=== PATIENT | female | born 1970 | race Hispanic/Latino ===

== ENCOUNTER → 2017-05-28 | Outpatient (CLI) | payer OTHER | END | disposition home or self-care (01) | LOC: RAH 11:37 | PROVIDERS: ATTEND Nurse Practitioner Family | DX: N63.20 Unspecified lump in the left breast, unspecified quadrant (principal); N63.10 Unspecified lump in the right breast, unspecified quadrant; R92.8 Other abnormal and inconclusive findings on diagnostic imaging of breast; D24.1 Benign neoplasm of right breast | CPT/HCPCS: 76641; 77066 ==

== ENCOUNTER → 2018-08-01 | Outpatient (CLI) | payer OTHER | END | disposition home or self-care (01) | LOC: RAH 10:00 | PROVIDERS: ATTEND Nurse Practitioner Family | DX: Z12.31 Encounter for screening mammogram for malignant neoplasm of breast (principal) | CPT/HCPCS: 77067 ==

== ENCOUNTER 2018-08-11 17:27 | Emergency (ER) | payer OTHER ==
[2018-08-11 18:22] LABS: APPEARANCE,URINE Clear (CLEAR); BILIRUBIN,URINE Negative (NEGATIVE); COLOR,URINE Yellow (YELLOW); GLUCOSE, URINE (UA) Negative (NEGATIVE); KETONES,URINE Negative (NEGATIVE); LEUKOCYTE ESTERASE ,URINE Negative (NEGATIVE); NITRATE,URINE Negative (NEGATIVE); OCCULT BLOOD,URINE Negative (NEGATIVE); PROTEIN,URINE Negative (NEGATIVE); UROBILINOGEN,URINE 0.2 mg/dL (0.2-1.0)
[2018-08-11 18:25] LABS: BASOPHILS % (AUTO) 0.4 % (0.0-5.0); EOSINOPHILS % (AUTO) 1.7 % (0.0-8.0); HEMATOCRIT 23.8 % (36-48); MEAN CORPUSCULAR HGB CONC 30.9 g/dL (32.0-36.0); MEAN CORPUSCULAR VOLUME 68.1 fL (79-99); MONOCYTES % (AUTO) 7.2 % (3.0-13.0); NEUTROPHILS % (AUTO) 68.7 % (40.0-77.0); PLATELET COUNT (AUTO) 465 K/uL (130-400); WHITE BLOOD COUNT (AUTO) 7.4 K/uL (4.8-10.8)
[2018-08-11 18:32] LABS: HCG,QUAL RESULT NEGATIVE (NEGATIVE)
[2018-08-11 18:43] LABS: CREATININE 0.9 mg/dL (0.5-1.5); POTASSIUM 3.7 mmol/L (3.5-5.1)
[2018-08-11 18:47] LABS: ALBUMIN 3.4 g/dL (3.5-5.0); BILIRUBIN,DIRECT 0.1 mg/dL (0.0-0.3); BILIRUBIN,TOTAL 0.2 mg/dL (0.2-1.0); TOTAL PROTEIN, SERUM 6.5 g/dL (6.0-8.3)
[2018-08-11] MEDS ORDERED: ORPHENADRINE CITRATE 30 MG/ML ML ONE (19:52)
[2018-08-11] MEDS ORDERED: KETOROLAC TROMETHAMINE 60 MG/2 ML VIAL ONE (19:52)
== END 2018-08-11 20:29 | disposition home or self-care (01) ==
LOC: EDH 17:27
DX: M62.838 Other muscle spasm (principal); D50.9 Iron deficiency anemia, unspecified; R06.02 Shortness of breath; K21.9 Gastro-esophageal reflux disease without esophagitis; Z88.6 Allergy status to analgesic agent; Z79.899 Other long term (current) drug therapy
CPT/HCPCS: 36415; 71046; 80048; 80076; 81003; 81025; 82270; 83690; 85025; 85378; 96372 ×2; 99285; J1885; J2360

== ENCOUNTER 2019-02-18 05:55 | Day surgery (SDC) | payer OTHER ==
[2019-02-16 11:56] VITALS: BP 116/66
[2019-02-16 12:06] LABS: BASOPHILS % (AUTO) 0.5 % (0.0-5.0); EOSINOPHILS % (AUTO) 3.6 % (0.0-8.0); HEMATOCRIT 36.1 % (36-48); LYMPHOCYTES % (AUTO) 29.5 % (21.0-51.0); MEAN CORPUSCULAR HEMOGLOBIN 28.2 pg (27.0-33.0); MEAN CORPUSCULAR HGB CONC 30.7 g/dL (32.0-36.0); MEAN CORPUSCULAR VOLUME 91.9 fL (79-99); MONOCYTES % (AUTO) 6.4 % (3.0-13.0); NEUTROPHILS % (AUTO) 59.6 % (40.0-77.0); PLATELET COUNT (AUTO) 372 K/uL (130-400); RED BLOOD CELL COUNT(AUTO) 3.93 MIL/uL (4.00-5.50); RED CELL DISTRIBUTION WIDTH 14.9 % (11.0-15.5); WHITE BLOOD COUNT (AUTO) 5.5 K/uL (4.8-10.8)
[2019-02-18] VITALS (14 sets, daily range): BP systolic 98–138; BP diastolic 50–79
[~2019-02-18] VITALS: Ht 162.6 cm; Wt 87.3 kg
[~2019-02-18 05:55] MED LIST: IRON1CAP31 PO; PROG100C11 PO; SUCR1TAB2 PO; TRAZADONE PO; ZOLP10TA6 PO
[2019-02-18] MEDS ORDERED: LACTATED RINGERS 1000ML 1,000 ML IV ONE (06:12)
[2019-02-18] MEDS: CEFAZOLIN SODIUM 1 GM VIAL IVP SCH ×2 (06:30→07:04)
[2019-02-18] MEDS: CALDOLOR 800MG+NS 250ML 250 ML IV SCH ×2 (06:30→07:29)
[2019-02-18] MEDS ORDERED: PROPOFOL 10 MG/ML 20ML VIAL IV ONE ×2 (07:04→07:15)
[2019-02-18] MEDS ORDERED: ONDANSETRON HCL 4 MG/2 ML VIAL ONE (07:04)
[2019-02-18] MEDS ORDERED: MIDAZOLAM HCL 1 MG/ML 2ML VIAL ONE (07:04)
[2019-02-18] MEDS ORDERED: LIDOCAINE PF 2% 5ML ABBOJECT ONE (07:04)
[2019-02-18] MEDS ORDERED: FENTANYL CITRATE PF 50 MCG/1 ML 2ML VIAL ONE ×2 (07:04→08:20)
[2019-02-18] MEDS ORDERED: DEXAMETHASONE SOD PHOSPHATE 10MG/ML 1ML VIAL ONE (07:04)
[2019-02-18] MEDS ORDERED: MEPERIDINE-PF 25 MG/ML SYG ONE (08:10)
--- NOTE | 2019-02-18 08:45 | NUR ---
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 PT AWAKE AND ALERT, DENIES ANY PAIN OR DISCOMFORTS. VS STABLE. PLAN OF CARE DISCUSS WITH PT/SPOUSE .CALL LIGHT WITHIN REACH
--- NOTE | 2019-02-18 09:12 | NUR ---
DC DC INSTRUCTIONS GIVEN TO PT'S SPOUSE , PT STATED DR. BOYD GAVE HER PRESCRIPTION FOR PAIN MEDS IN OFFICE PRIOR TO SURGERY. INSTRUCTED THEM TO F/U WITH DR. BOYD AND CONTINUE HOME MEDS. BOTH VERBALIZED UNDERSTANDING.
--- NOTE | 2019-02-18 09:15 | NUR ---
DC PT DC HOME VIA WC, NO DISTRESS NOTED. PT DENIED ANY PAIN OR DISCOMFORTS. PT ACCOMPANIED BY SPOUSE
== END 2019-02-18 09:15 | disposition home or self-care (01) ==
LOC: DAH 05:55
PROVIDERS: ATTEND Obstetrics & Gynecology
DX: N92.0 Excessive and frequent menstruation with regular cycle (principal); N93.9 Abnormal uterine and vaginal bleeding, unspecified; N81.4 Uterovaginal prolapse, unspecified; F41.9 Anxiety disorder, unspecified; F32.9 Major depressive disorder, single episode, unspecified; Z98.890 Other specified postprocedural states
CPT/HCPCS: 36415; 58558; 84703; 85025; 86850; 86900; 86901; 88305; A4215; A4221; A4222; A4223; A4351; A4355; A4663; A6260; J0690; J1100; J2001; J2175; J2250; J2405; J2704 ×2; J3010 ×2; J7030 ×2; J7120

== ENCOUNTER → 2019-08-19 | Outpatient (CLI) | payer OTHER | END | disposition home or self-care (01) | LOC: RAH 14:45 | PROVIDERS: ATTEND Legal Medicine | DX: Z12.31 Encounter for screening mammogram for malignant neoplasm of breast (principal); N64.89 Other specified disorders of breast | CPT/HCPCS: 77067 ==

== ENCOUNTER 2020-07-16 10:45 | Emergency (ER) | payer OTHER ==
[2020-07-16 11:23] LABS: BASOPHILS % (AUTO) 0.6 % (0.0-5.0); EOSINOPHILS % (AUTO) 2.4 % (0.0-8.0); HEMATOCRIT 28.6 % (36-48); LYMPHOCYTES % (AUTO) 26.1 % (21.0-51.0); MEAN CORPUSCULAR HGB CONC 29.4 g/dL (32.0-36.0); MEAN CORPUSCULAR VOLUME 95.3 fL (79-99); MONOCYTES % (AUTO) 4.8 % (3.0-13.0); NEUTROPHILS % (AUTO) 65.6 % (40.0-77.0); PLATELET COUNT (AUTO) 468 K/uL (130-400); RED CELL DISTRIBUTION WIDTH 19.2 % (11.0-15.5); WHITE BLOOD COUNT (AUTO) 6.6 K/uL (4.8-10.8)
[2020-07-16 11:27] LABS: APPEARANCE,URINE Clear (CLEAR); BILIRUBIN,URINE Negative (NEGATIVE); COLOR,URINE Yellow (YELLOW); GLUCOSE, URINE (UA) Negative (NEGATIVE); KETONES,URINE Negative (NEGATIVE); LEUKOCYTE ESTERASE ,URINE Negative (NEGATIVE); NITRATE,URINE Negative (NEGATIVE); OCCULT BLOOD,URINE Negative (NEGATIVE); PROTEIN,URINE Negative (NEGATIVE); UROBILINOGEN,URINE 0.2 mg/dL (0.2-1.0)
[2020-07-16 11:32] LABS: PROTHROMBIN TIME 10.9 SEC (9.6-11.6)
[2020-07-16 11:34] LABS: PARTIAL THROMBOPLASTIN TIME 23.5 SEC (26.3-35.5)
[2020-07-16 11:37] LABS: CREATININE 0.9 mg/dL (0.5-1.5); POTASSIUM 3.9 mmol/L (3.5-5.1)
[2020-07-16 11:39] LABS: ALBUMIN 3.1 g/dL (3.5-5.0); BILIRUBIN,TOTAL 0.1 mg/dL (0.2-1.0); TOTAL PROTEIN, SERUM 6.6 g/dL (6.0-8.3)
== END 2020-07-16 12:19 | disposition home or self-care (01) ==
LOC: EDH 10:45
DX: D50.9 Iron deficiency anemia, unspecified (principal); K21.9 Gastro-esophageal reflux disease without esophagitis; Z90.49 Acquired absence of other specified parts of digestive tract; Z98.890 Other specified postprocedural states; Z88.5 Allergy status to narcotic agent
CPT/HCPCS: 36415; 80053; 81003; 85025; 85610; 85730; 86850; 86900; 86901

== ENCOUNTER 2020-08-04 22:39 | Emergency (ER) | payer OTHER ==
[~2020-08-04] VITALS: Ht 160 cm; Wt 86.2 kg
[2020-08-04 23:36] VITALS: BP 134/62
[2020-08-05] MEDS ORDERED: ONDANSETRON HCL 4 MG/2 ML VIAL IVP SCH
[2020-08-05] MEDS ORDERED: METOCLOPRAMIDE 10 MG/2 ML VIAL IVP SCH (00:15)
[2020-08-05] MEDS ORDERED: SODIUM CHLORIDE 0.9% 1000ML 1,000 ML IV SCH (00:15)
[2020-08-05] MEDS ORDERED: KETOROLAC 30MG VIAL (30MG/ML) IV SCH (00:15)
[2020-08-05 00:21] LABS: CREATININE 1.2 mg/dL (0.5-1.5); POTASSIUM 3.7 mmol/L (3.5-5.1)
[2020-08-05] MEDS ORDERED: IOHEXOL-350 75 ML VIAL IV ONE (00:27)
[2020-08-05 00:28] LABS: ALBUMIN 2.9 g/dL (3.5-5.0); BILIRUBIN,TOTAL 0.2 mg/dL (0.2-1.0); TOTAL PROTEIN, SERUM 6.7 g/dL (6.0-8.3)
[2020-08-05 00:52] LABS: BASOPHILS % (AUTO) 0.2 % (0.0-5.0); EOSINOPHILS % (AUTO) 1.6 % (0.0-8.0); HEMATOCRIT 28.7 % (36-48); LYMPHOCYTES % (AUTO) 10.9 % (21.0-51.0); MEAN CORPUSCULAR HEMOGLOBIN 28.6 pg (27.0-33.0); MEAN CORPUSCULAR VOLUME 95.3 fL (79-99); MONOCYTES % (AUTO) 7.1 % (3.0-13.0); NEUTROPHILS % (AUTO) 79.9 % (40.0-77.0); PLATELET COUNT (AUTO) 415 K/uL (130-400); RED BLOOD CELL COUNT(AUTO) 3.01 MIL/uL (4.00-5.50); RED CELL DISTRIBUTION WIDTH 16.9 % (11.0-15.5); WHITE BLOOD COUNT (AUTO) 12.5 K/uL (4.8-10.8)
[2020-08-05 01:41] LABS: APPEARANCE,URINE Cloudy (CLEAR); BILIRUBIN,URINE Negative (NEGATIVE); COLOR,URINE Red (YELLOW); GLUCOSE, URINE (UA) Negative (NEGATIVE); KETONES,URINE Negative (NEGATIVE); LEUKOCYTE ESTERASE ,URINE Large (NEGATIVE); NITRATE,URINE Negative (NEGATIVE); OCCULT BLOOD,URINE Large (NEGATIVE); PROTEIN,URINE POS 1+ mg/dL (NEGATIVE); UROBILINOGEN,URINE 0.2 mg/dL (0.2-1.0)
[2020-08-05 02:13] LABS: RBC,URINE TNTC /HPF (0-1)
[2020-08-05 02:14] LABS: BACTERIA,URINE Few /HPF (None Seen)
[2020-08-05] MEDS ORDERED: CYCL10TA7 PO (02:14)
[2020-08-05] MEDS ORDERED: MELO7.5T12 PO (02:14)
[2020-08-05] MEDS ORDERED: DICY20TA2 PO (02:14)
[2020-08-05 02:35] VITALS: BP 105/64
== END 2020-08-05 02:36 | disposition home or self-care (01) ==
LOC: EDH 22:39
DX: N85.8 Other specified noninflammatory disorders of uterus (principal); E86.0 Dehydration; R10.31 Right lower quadrant pain; Z98.890 Other specified postprocedural states; Z88.5 Allergy status to narcotic agent; Z79.899 Other long term (current) drug therapy
CPT/HCPCS: 36415; 74177; 80053; 81001; 83690; 85025; 87088; 96361; 96374; 96375; 99285; J1885; J2405; J2765; J7030; Q9967

== ENCOUNTER 2022-05-25 13:36 | Emergency (ER) | payer OTHER ==
[~2022-05-25] VITALS: Ht 160 cm; Wt 87.1 kg
[~2022-05-25 13:36] MED LIST changes: +CYCL-309 PO; +DICY20TA2 PO; +MELO7.5T12 PO
[2022-05-25 14:34] VITALS: BP 121/88
[2022-05-25] MEDS ORDERED: IBUPROFEN 800 MG TAB ONE (15:39)
[2022-05-25] MEDS ORDERED: IBUPROFEN 800 MG TAB PO ONE (16:00)
== END 2022-05-25 18:09 | disposition home or self-care (01) ==
LOC: EDH 13:36
DX: M25.511 Pain in right shoulder (principal); M54.2 Cervicalgia; M54.50 Low back pain, unspecified; E11.9 Type 2 diabetes mellitus without complications; Z79.899 Other long term (current) drug therapy; Z98.890 Other specified postprocedural states; V89.2XXA Person injured in unspecified motor-vehicle accident, traffic, initial encounter; Y93.I9 Activity, other involving external motion; Y92.488 Other paved roadways as the place of occurrence of the external cause; Y99.8 Other external cause status
CPT/HCPCS: 72100; 72125; 73030

== ENCOUNTER → 2022-06-06 | Outpatient (CLI) | payer OTHER | END | disposition home or self-care (01) | LOC: RAH 12:54 | PROVIDERS: ATTEND Physician Assistant Medical | DX: Z12.31 Encounter for screening mammogram for malignant neoplasm of breast (principal) | CPT/HCPCS: 77067 ==

== ENCOUNTER 2022-08-20 | Emergency (ER) | payer OTHER ==
[~2022-08-20] VITALS: Ht 160 cm; Wt 92.5 kg
[2022-08-20 00:04] VITALS: BP 128/84
== END 2022-08-20 00:33 | disposition home or self-care (01) ==
LOC: EDH
DX: J45.909 Unspecified asthma, uncomplicated (principal); R00.2 Palpitations; M19.90 Unspecified osteoarthritis, unspecified site; Z79.890 Hormone replacement therapy; Z79.899 Other long term (current) drug therapy; Z88.5 Allergy status to narcotic agent
CPT/HCPCS: 99281

== ENCOUNTER 2023-04-15 06:52 | Day surgery (SDC) | payer OTHER ==
[~2023-04-15] VITALS: Ht 160 cm; Wt 89.4 kg
[~2023-04-15 06:52] MED LIST changes: -CYCL-309 PO; -DICY20TA2 PO; -IRON1CAP31 PO; -MELO7.5T12 PO; +MULT-1367 PO; +OMEP1CAP2 PO; -PROG100C11 PO; -SUCR1TAB2 PO; -TRAZADONE PO
[2023-04-15 07:05] VITALS: BP 102/72; PULSE 91; RESP 18
[2023-04-15] MEDS: 0.9%NACL 1000ML 1,000 ML IV ONE (07:44)
[2023-04-15] MEDS ORDERED: MIDAZOLAM HCL 1 MG/ML 2ML VIAL ONE (07:50)
[2023-04-15] MEDS ORDERED: LIDOCAINE PF 100MG/5ML (2%) SYRINGE 5ML ONE (07:50)
[2023-04-15] MEDS ORDERED: PROPOFOL 10 MG/ML 20ML VIAL IV ONE (07:50)
[2023-04-15] MEDS ORDERED: ALBUTEROL INHALER 90MCG/INH IH ONE (07:53)
== END 2023-04-15 08:35 | disposition home or self-care (01) ==
LOC: ENDO 06:52 → DAH 06:52 → ENDO 08:35
PROVIDERS: ATTEND Surgery
DX: K21.9 Gastro-esophageal reflux disease without esophagitis (principal); E66.01 Morbid (severe) obesity due to excess calories; J45.909 Unspecified asthma, uncomplicated; G47.30 Sleep apnea, unspecified; F41.9 Anxiety disorder, unspecified; F32.A Depression, unspecified; G47.00 Insomnia, unspecified; Z79.899 Other long term (current) drug therapy; Z98.890 Other specified postprocedural states; Z90.49 Acquired absence of other specified parts of digestive tract; Z98.891 History of uterine scar from previous surgery; Z82.49 Family history of ischemic heart disease and other diseases of the circulatory system; Z68.36 Body mass index [BMI] 36.0-36.9, adult
CPT/HCPCS: 43235; J7030 ×2; J2001; J2250; J2704; A4620; A4215; A4223; A7002; A4221; A4663; A4606; J3490

== ENCOUNTER 2023-06-01 16:51 | Emergency (ER) | payer OTHER ==
[~2023-06-01] VITALS: Ht 160 cm; Wt 83.0 kg
[2023-06-01 17:59] LABS: BASOPHILS # (AUTO) 0.04 K/uL (0.00-0.20); BASOPHILS % (AUTO) 0.4 % (0.0-5.0); EOSINOPHILS # (AUTO) 0.38 K/uL (0.00-0.70); HEMATOCRIT 33.8 % (36-48); IMMATURE GRANULOCYTE ABSOLUTE 0.07 K/uL (0-1); LYMPHOCYTES # (AUTO) 1.1 K/uL (1.0-4.8); MEAN CORPUSCULAR HEMOGLOBIN 29.5 pg (27.0-33.0); MEAN CORPUSCULAR HGB CONC 31.7 g/dL (32.0-36.0); MEAN CORPUSCULAR VOLUME 93.1 fL (79-99); MONOCYTES # (AUTO) 0.6 K/uL (0.1-1.0); MONOCYTES % (AUTO) 6.3 % (3.0-13.0); NEUTROPHILS # (AUTO) 7.2 K/uL (1.8-7.7); NEUTROPHILS % (AUTO) 76.6 % (40.0-77.0); PLATELET COUNT (AUTO) 546 K/uL (130-400); RED BLOOD CELL COUNT(AUTO) 3.63 MIL/uL (4.00-5.50); WHITE BLOOD COUNT (AUTO) 9.4 K/uL (4.8-10.8)
[2023-06-01 18:05] LABS: POTASSIUM 3.6 mmol/L (3.5-5.1)
[2023-06-01 18:10] LABS: ALBUMIN 2.2 g/dL (3.5-5.0); TOTAL PROTEIN, SERUM 7.1 g/dL (6.0-8.3)
[2023-06-01 18:13] LABS: ADD UA MICROSCOPIC YES; APPEARANCE,URINE CLEAR (CLEAR); BILIRUBIN,URINE 0.5 mg/dL (NEGATIVE); COLOR,URINE YELLOW (YELLOW); GLUCOSE, URINE (UA) NEGATIVE (NEGATIVE); KETONES,URINE 60 mg/dL (NEGATIVE); LEUKOCYTE ESTERASE ,URINE 25 Leu/uL (NEGATIVE); NITRATE,URINE NEGATIVE (NEGATIVE); PROTEIN,URINE 50 mg/dL (NEGATIVE)
[2023-06-01] MEDS ORDERED: IOHEXOL-350 75 ML VIAL IV ONE (18:13)
[2023-06-01] MEDS: LACTATED RINGERS 1000ML 1,000 ML IV ONE (18:16)
[2023-06-01] MEDS: ONDANSETRON 4MG INJ IVP ONE (18:16)
[2023-06-01] MEDS: HYDROMORPHONE 1 MG INJ IVP ONE (18:16)
[2023-06-01 18:18] LABS: BACTERIA,URINE RARE /HPF (None Seen); MUCUS,URINE RARE LPF (None Seen); SQUAMOUS EPITHELIAL CELL,UR RARE /HPF (0-2)
[2023-06-01] MEDS: HYDROMORPHONE 0.5 MG SYG (0.5MG/0.5ML) IVP ONE (22:31)
[2023-06-01 23:36] VITALS: BP 108/80; PULSE 91; RESP 18; O2SAT 99
[2023-06-03] MEDS ORDERED: ENOX30DI4 SQ (20:02)
[2023-06-03] MEDS ORDERED: CEFP100T9 PO (20:02)
== END 2023-06-01 23:49 | disposition home or self-care (01) ==
LOC: EDH 16:51
DX: R10.11 Right upper quadrant pain (principal); J45.909 Unspecified asthma, uncomplicated; J90 Pleural effusion, not elsewhere classified; Z98.890 Other specified postprocedural states; Z88.5 Allergy status to narcotic agent
CPT/HCPCS: 99285; 74177; 96374; 96361; 96375; 80053; 83690; 85025; 87088; 81001; 36415; 96376; J7120; J1170 ×2; J2405; Q9967

== ENCOUNTER 2023-07-01 15:00 | Emergency (ER) | payer OTHER ==
[~2023-07-01] VITALS: Ht 160 cm; Wt 69.9 kg
[~2023-07-01 15:00] MED LIST changes: +CEFP100T9 PO; +ENOX30DI4 SQ; -MULT-1367 PO; -OMEP1CAP2 PO; -ZOLP10TA6 PO
[2023-07-01] MEDS: NITROGLYCERIN 0.4 MG SL TAB SL ONE (16:15)
[2023-07-01] MEDS: ASPIRIN 325MG TAB ONE (16:15)
[2023-07-01 17:13] LABS: BASOPHILS # (AUTO) 0.02 K/uL (0.00-0.20); BASOPHILS % (AUTO) 0.2 % (0.0-5.0); EOSINOPHILS # (AUTO) 0.01 K/uL (0.00-0.70); EOSINOPHILS % (AUTO) 0.1 % (0.0-8.0); IMMATURE GRANULOCYTE ABSOLUTE 0.04 K/uL (0-1); LYMPHOCYTES # (AUTO) 0.7 K/uL (1.0-4.8); LYMPHOCYTES % (AUTO) 7.8 % (21.0-51.0); MEAN CORPUSCULAR HGB CONC 32.3 g/dL (32.0-36.0); MEAN CORPUSCULAR VOLUME 95.9 fL (79-99); MONOCYTES # (AUTO) 0.5 K/uL (0.1-1.0); MONOCYTES % (AUTO) 5.5 % (3.0-13.0); NEUTROPHILS # (AUTO) 7.2 K/uL (1.8-7.7); NEUTROPHILS % (AUTO) 85.9 % (40.0-77.0); PLATELET COUNT (AUTO) 531 K/uL (130-400); RED BLOOD CELL COUNT(AUTO) 3.65 MIL/uL (4.00-5.50); RED CELL DISTRIBUTION WIDTH 17.1 % (11.0-15.5); WHITE BLOOD COUNT (AUTO) 8.4 K/uL (4.8-10.8)
[2023-07-01] MEDS: LACTATED RINGERS 1000ML 1,000 ML IV ONE (17:16)
[2023-07-01] MEDS: METOCLOPRAMIDE 10 MG/2 ML VIAL IVP ONE (17:17)
[2023-07-01] MEDS: FAMOTIDINE 20MG VIAL IV ONE (17:18)
[2023-07-01 17:26] LABS: ALBUMIN 2.7 g/dL (3.5-5.0); BILIRUBIN,TOTAL 0.4 mg/dL (0.2-1.0); CREATININE 0.9 mg/dL (0.5-1.0)
[2023-07-01] MEDS ORDERED: IOHEXOL-350 75 ML VIAL IV ONE (17:55)
[2023-07-01 18:14] LABS: MAGNESIUM 1.5 mg/dL (1.80-2.40); THYROID STIMULATING HORMONE 1.72 uIU/mL (0.36-3.74)
[2023-07-01] MEDS: POTASSIUM BICARB/CIT AC 25 MEQ TABLET.EFF PO ONE (19:02)
[2023-07-01 19:06] LABS: APPEARANCE,URINE CLEAR (CLEAR); BILIRUBIN,URINE NEGATIVE (NEGATIVE); COLOR,URINE YELLOW (YELLOW); GLUCOSE, URINE (UA) NEGATIVE (NEGATIVE); KETONES,URINE 40 mg/dL (NEGATIVE); LEUKOCYTE ESTERASE ,URINE 25 Leu/uL (NEGATIVE); NITRATE,URINE NEGATIVE (NEGATIVE); OCCULT BLOOD,URINE NEGATIVE (NEGATIVE); PH,URINE 6.5 (5.0-8.0); PROTEIN,URINE 30 mg/dL (NEGATIVE); UROBILINOGEN,URINE 0.2 mg/dL (0.2-1.0)
[2023-07-01 19:10] LABS: ADD UA MICROSCOPIC YES
[2023-07-01 19:23] LABS: BACTERIA,URINE RARE /HPF (None Seen); MUCUS,URINE RARE LPF (None Seen); SQUAMOUS EPITHELIAL CELL,UR RARE /HPF (0-2)
[2023-07-01] MEDS: POTASSIUM CHLORIDE 10% ELIXIR 20 MEQ/15 ML UDCUP ONE (19:52)
[2023-07-01] MEDS: KCL 20 MEQ ERTAB PO ONE ×2 (19:54→19:55)
[2023-07-01 20:55] VITALS: BP 118/82; PULSE 92; RESP 18; O2SAT 100
== END 2023-07-01 20:59 | disposition home or self-care (01) ==
LOC: EDH 15:00
DX: R10.31 Right lower quadrant pain (principal); E87.6 Hypokalemia; J45.909 Unspecified asthma, uncomplicated; D64.9 Anemia, unspecified; K57.92 Diverticulitis of intestine, part unspecified, without perforation or abscess without bleeding; Z04.9 Encounter for examination and observation for unspecified reason; Z79.899 Other long term (current) drug therapy; Z98.890 Other specified postprocedural states; Z88.5 Allergy status to narcotic agent; Z90.49 Acquired absence of other specified parts of digestive tract
CPT/HCPCS: 99285; 74178; 96374; 96361; 96375; 82150; 84443; 82550; 83735; 84484; 80053; 83690; 85025; 87088; 81001; 36415; 93005; J7120; J3490; J2765; Q9967

== ENCOUNTER 2023-11-05 14:17 | Inpatient (IN) | payer OTHER ==
[~2023-11-05] VITALS: Ht 160 cm; Wt 90.8 kg
[~2023-11-05 14:17] MED LIST changes: +APIX5TAB PO; -CEFP100T9 PO; +CYAN100T45 PO; -ENOX30DI4 SQ; +METO5TAB87 PO
[2023-11-05 18:16] VITALS: BP 128/78; PULSE 91; RESP 20; TEMP 98.5
[2023-11-05] MEDS ORDERED: doCUSate SODIUM 100 MG CAP PO PRN (19:00)
[2023-11-05] MEDS ORDERED: hydrALAZine 20MG/ML VIAL IV PRN (19:00)
[2023-11-05] MEDS ORDERED: LACTULOSE 20 GM/30 ML UDCUP PO PRN (19:00)
[2023-11-05] MEDS ORDERED: acetaMINOPHEN 650 MG SUPPOSITORY RC PRN (19:00)
[2023-11-05 20:00] VITALS: BP 145/87; PULSE 88; RESP 18; TEMP 97.7
[2023-11-05 20:07] LABS: BASOPHILS # (AUTO) 0.03 K/uL (0.00-0.20); BASOPHILS % (AUTO) 0.2 % (0.0-5.0); EOSINOPHILS # (AUTO) 0.03 K/uL (0.00-0.70); EOSINOPHILS % (AUTO) 0.2 % (0.0-8.0); HEMATOCRIT 27.5 % (36-48); IMMATURE GRANULOCYTE ABSOLUTE 0.19 K/uL (0-1); LYMPHOCYTES % (AUTO) 7.8 % (21.0-51.0); MEAN CORPUSCULAR HEMOGLOBIN 32.4 pg (27.0-33.0); MEAN CORPUSCULAR VOLUME 101.1 fL (79-99); MONOCYTES # (AUTO) 1.4 K/uL (0.1-1.0); MONOCYTES % (AUTO) 11.2 % (3.0-13.0); NEUTROPHILS # (AUTO) 9.7 K/uL (1.8-7.7); NEUTROPHILS % (AUTO) 79.1 % (40.0-77.0); NUCLEATED RED BLOOD CELLS 0.3 % (0.0-0.19); PLATELET COUNT (AUTO) 457 K/uL (130-400); RED BLOOD CELL COUNT(AUTO) 2.72 MIL/uL (4.00-5.50); RED CELL DISTRIBUTION WIDTH 22.5 % (11.0-15.5); WHITE BLOOD COUNT (AUTO) 12.3 K/uL (4.8-10.8)
[2023-11-05 20:15] VITALS: O2SAT 100
[2023-11-05 20:19] LABS: CARBON DIOXIDE 16 mmol/L (21-32); CHLORIDE 112 mmol/L (101-111); CREATININE 0.8 mg/dL (0.5-1.0); GLOMERULAR FILTR. RATE CALC 89 mL/min (>90); GLUCOSE,RANDOM 81 mg/dL (70-105); POTASSIUM 3.3 mmol/L (3.5-5.1); SODIUM SERUM 137 mmol/L (136-145); UREA NITROGEN, BLOOD 25 mg/dL (7-18)
[2023-11-05] MEDS: LACTATED RINGERS 1000ML 1,000 ML IV SCH (20:19)
[2023-11-05 20:31] LABS: ALANINE AMINOTRANSFERASE 167 U/L (12-78); ALBUMIN 0.8 g/dL (3.5-5.0); AMMONIA < 10 umol/L (11-32); ASPARTATE AMINOTRANSFERASE 100 U/L (10-37); BILIRUBIN,DIRECT 0.5 mg/dL (0.0-0.3); BILIRUBIN,TOTAL 0.7 mg/dL (0.2-1.0); THYROID STIMULATING HORMONE 4.44 uIU/mL (0.36-3.74); TOTAL PROTEIN, SERUM 4.2 g/dL (6.0-8.3)
[2023-11-05] MEDS: INSULIN humuLIN R 100 UNIT/ML 3ML SQ SCH (20:36)
[2023-11-05 20:40] LABS: WBC MORPHOLOGY SLIDE REVIEWED
[2023-11-05] MEDS ORDERED: GLUCAGON 1MG KIT 1 MG ML IM PRN (21:30)
[2023-11-05 22:19] LABS: RAPID GROUP A STREP negative (NEGATIVE)
[2023-11-05 22:29] LABS: SARS-CoV-2, RNA, NAAT NEGATIVE SARS CoV-2 (NEGATIVE)
[2023-11-05 22:32] LABS: INFLUENZA TYPE A Negative For Type A (NEGATIVE); INFLUENZA TYPE B Negative For Type B (NEGATIVE)
[2023-11-05] MEDS ORDERED: IOHEXOL 350 MG/ML 100ML INFUS..BTL IV ONE (22:47)
[2023-11-05] MEDS: MAGNESIUM 2GM PREMIX 50ML 50 ML IV PRN (23:24)
[2023-11-06] VITALS (8 sets, daily range): BP systolic 109–149; BP diastolic 64–83; PULSE 90–99; RESP 17–18; TEMP 97.6–98.9; O2SAT 97–100
[2023-11-06 00:58] LABS: BILIRUBIN,URINE NEGATIVE (NEGATIVE); COLOR,URINE YELLOW (YELLOW); GLUCOSE, URINE (UA) NEGATIVE (NEGATIVE); KETONES,URINE 5 mg/dL (NEGATIVE); LEUKOCYTE ESTERASE ,URINE NEGATIVE Leu/uL (NEGATIVE); NITRATE,URINE NEGATIVE (NEGATIVE); OCCULT BLOOD,URINE SMALL (NEGATIVE); PROTEIN,URINE 70 mg/dL (NEGATIVE); UROBILINOGEN,URINE 0.2 mg/dL (0.2-1.0)
[2023-11-06 01:01] LABS: APPEARANCE,URINE SLIGHTLY CLOUDY (CLEAR)
[2023-11-06 01:02] LABS: ADD UA MICROSCOPIC YES
[2023-11-06 01:06] LABS: BACTERIA,URINE RARE /HPF (None Seen); HYALINE CASTS, URINE 0-1 /LPF (0-1 /LPF); MUCUS,URINE FEW LPF (None Seen); SQUAMOUS EPITHELIAL CELL,UR RARE /HPF (0-2)
[2023-11-06] MEDS: PHARMACY COMMUNICATION MISC SCH (02:30)
[2023-11-06 03:26] LABS: ABG BASE EXCESS -8.8 mmol/L (-2.0-3.0); ABG HCO3 15.4 mmol/L (21.0-28.0); ABG OXYGEN SATURATION 96.5 % (94.0-98.0); ABG PCO2 28 mmHg (32-45); ABG PH 7.365 (7.350-7.450); CARBON MONOXIDE 0.3 % (0.5-1.5); DEVICE COMMENT RR CYNTHIARN; HHb 3.5; PO2, ARTERIAL BG 92.1 mmHg (83.0-108.0); VENT MODE, BG RA (ROOM AIR)
[2023-11-06] MEDS: PoTASSium chloRIDE 20MEQ ER 20 MEQ ERTAB PO PRN (03:50)
[2023-11-06] MEDS: ceFEPime HCL 2 GM VIAL IVPB SCH (03:51)
[2023-11-06 05:11] LABS: HEMATOCRIT 27.2 % (36-48); HEMOGLOBIN A1C 4.6 % (4.0-6.0); MEAN CORPUSCULAR HEMOGLOBIN 32.2 pg (27.0-33.0); MEAN CORPUSCULAR HGB CONC 32.4 g/dL (32.0-36.0); MEAN CORPUSCULAR VOLUME 99.6 fL (79-99); NUCLEATED RED BLOOD CELLS 0.2 % (0.0-0.19); RED BLOOD CELL COUNT(AUTO) 2.73 MIL/uL (4.00-5.50); RED CELL DISTRIBUTION WIDTH 22.3 % (11.0-15.5); WHITE BLOOD COUNT (AUTO) 14.3 K/uL (4.8-10.8)
[2023-11-06 05:13] LABS: CREATININE 0.8 mg/dL (0.5-1.0); PHOSPHORUS 2.9 mg/dL (2.5-4.9)
[2023-11-06] MEDS: levoTHYROxine 50 MCG TABLET PO SCH (06:20)
[2023-11-06] MEDS: DEXTROSE 5 % AND 0.9 % NACL 1,000 ML IV SCH (06:20)
[2023-11-06] MEDS: metoCLOPRAmide 10 MG/2 ML VIAL IVP SCH (06:23)
[2023-11-06] MEDS: metoCLOPRAmide 10 MG/2 ML VIAL ONE (06:30)
[2023-11-06] MEDS: droNABinol 2.5 MG CAP PO SCH (09:03)
[2023-11-06] MEDS: PANTOPrazole 40 MG/VIAL IVP SCH (09:03)
[2023-11-06] MEDS: FERROUS SULFATE 325 MG TABLET.DR PO SCH (09:04)
[2023-11-06] MEDS: citaLOPram 20 MG TABLET PO SCH (09:04)
[2023-11-06] MEDS: APIXaban 5 MG TABLET PO SCH (09:04)
[2023-11-06] MEDS: carVEDIlol 3.125 MG TABLET PO SCH (09:05)
[2023-11-06] MEDS: PoTASSium chloRIDE 20MEQ/100ML 100 ML IV PRN (18:17)
[2023-11-06] MEDS: acetaMINOPHEN 325 MG TAB PO PRN (21:45)
[2023-11-06] MEDS: BALSAM PERU/CASTOR OIL 60 GM TUBE TP SCH (21:45)
[2023-11-06] MEDS: ketOROlac 15MG/ML VIAL (15MG/ML) IV ONE (23:02)
[2023-11-06] MEDS: ALBUMIN (HUMAN) 25% 50 ML IV SCH (23:02)
[2023-11-07] VITALS (7 sets, daily range): BP systolic 111–156; BP diastolic 60–85; PULSE 79–97; RESP 16–20; TEMP 97.6–99.1; O2SAT 99–100
[2023-11-07 04:24] LABS: BASOPHILS # (AUTO) 0.03 K/uL (0.00-0.20); BASOPHILS % (AUTO) 0.2 % (0.0-5.0); EOSINOPHILS # (AUTO) 0.02 K/uL (0.00-0.70); EOSINOPHILS % (AUTO) 0.2 % (0.0-8.0); HEMATOCRIT 24.1 % (36-48); IMMATURE GRANULOCYTE ABSOLUTE 0.35 K/uL (0-1); LYMPHOCYTES % (AUTO) 8.3 % (21.0-51.0); MEAN CORPUSCULAR HEMOGLOBIN 31.6 pg (27.0-33.0); MEAN CORPUSCULAR VOLUME 98.8 fL (79-99); MONOCYTES # (AUTO) 1.4 K/uL (0.1-1.0); MONOCYTES % (AUTO) 11.1 % (3.0-13.0); NEUTROPHILS # (AUTO) 9.6 K/uL (1.8-7.7); NEUTROPHILS % (AUTO) 77.4 % (40.0-77.0); PLATELET COUNT (AUTO) 529 K/uL (130-400); RED BLOOD CELL COUNT(AUTO) 2.44 MIL/uL (4.00-5.50); RED CELL DISTRIBUTION WIDTH 22.3 % (11.0-15.5); WHITE BLOOD COUNT (AUTO) 12.4 K/uL (4.8-10.8)
[2023-11-07 04:53] LABS: ALBUMIN 1.1 g/dL (3.5-5.0); BILIRUBIN,TOTAL 0.8 mg/dL (0.2-1.0); CREATININE 0.8 mg/dL (0.5-1.0); POTASSIUM 3.1 mmol/L (3.5-5.1)
[2023-11-07] MEDS: DEXTROSE 50%-WATER 50 ML DISP.SYRIN IV PRN (05:32)
[2023-11-07] MEDS: ERGOCALCIFEROL (VITAMIN D2) 50,000 UNIT CAPSULE PO SCH (16:25)
[2023-11-07] MEDS: MULTIVITAMIN TABLET PO SCH (16:25)
[2023-11-08] VITALS: BP 127/78; PULSE 81; RESP 19; TEMP 97.8
[2023-11-08 04:00] VITALS: BP 145/88; PULSE 81; RESP 19; TEMP 98.3
[2023-11-08 04:18] LABS: HEMATOCRIT 22.2 % (36-48); MEAN CORPUSCULAR HEMOGLOBIN 31.8 pg (27.0-33.0); MEAN CORPUSCULAR VOLUME 99.6 fL (79-99); RED BLOOD CELL COUNT(AUTO) 2.23 MIL/uL (4.00-5.50); RED CELL DISTRIBUTION WIDTH 21.6 % (11.0-15.5); WHITE BLOOD COUNT (AUTO) 10.9 K/uL (4.8-10.8)
[2023-11-08 04:41] LABS: ALBUMIN 1.6 g/dL (3.5-5.0); BILIRUBIN,TOTAL 0.7 mg/dL (0.2-1.0); CREATININE 0.8 mg/dL (0.5-1.0); POTASSIUM 3.4 mmol/L (3.5-5.1); TOTAL PROTEIN, SERUM 4.4 g/dL (6.0-8.3)
[2023-11-08 08:00] VITALS: BP 131/74; PULSE 85; RESP 18; TEMP 97.8; O2SAT 100
[2023-11-08] MEDS ORDERED: PHARMACY COMMUNICATION MISC SCH (11:30)
[2023-11-08 11:54] VITALS: BP 141/81; PULSE 82; RESP 18; TEMP 97.8
[2023-11-08] MEDS ORDERED: COMPOUND IV MISC 1 EACH IVSOLN MISC PRN (12:30)
[2023-11-08 12:32] LABS: INR 1.28 (0.85-1.15); PROTHROMBIN TIME 13.6 SEC (9.6-11.6)
[2023-11-08 12:33] LABS: PARTIAL THROMBOPLASTIN TIME 34.5 SEC (26.3-35.5)
[2023-11-08] MEDS: MICAFUNGIN 100MG+NS 100ML 100 ML IV SCH (13:58)
[2023-11-08] MEDS: LIDOCAINE HCL 2% VISCOUS 15 ML UDCUP ONE (15:45)
[2023-11-08 17:18] VITALS: BP 132/76; PULSE 84; RESP 18; TEMP 98
[2023-11-08 20:00] VITALS: BP 158/88; PULSE 82; RESP 20; TEMP 97.7; O2SAT 99
[2023-11-08] MEDS: PoTASSium chl 10% ELIXIR 20MEQ 20 MEQ/15 ML UDCUP PO PRN (21:23)
[2023-11-09] VITALS (7 sets, daily range): BP systolic 126–150; BP diastolic 71–91; PULSE 82–96; RESP 16–20; TEMP 97.7–98.9; O2SAT 87–99
[2023-11-09 03:45] LABS: HEMATOCRIT 22.8 % (36-48); MEAN CORPUSCULAR HEMOGLOBIN 31.7 pg (27.0-33.0); MEAN CORPUSCULAR HGB CONC 31.6 g/dL (32.0-36.0); MEAN CORPUSCULAR VOLUME 100.4 fL (79-99); RED BLOOD CELL COUNT(AUTO) 2.27 MIL/uL (4.00-5.50); RED CELL DISTRIBUTION WIDTH 21.2 % (11.0-15.5); WHITE BLOOD COUNT (AUTO) 9.3 K/uL (4.8-10.8)
[2023-11-09 04:16] LABS: BILIRUBIN,TOTAL 0.7 mg/dL (0.2-1.0); CREATININE 0.7 mg/dL (0.5-1.0); POTASSIUM 3.1 mmol/L (3.5-5.1); TOTAL PROTEIN, SERUM 4.7 g/dL (6.0-8.3)
[2023-11-10] VITALS: BP 131/89; PULSE 87; RESP 18; TEMP 97.9
[2023-11-10] MEDS: TEMAZepam 15 MG CAPSULE PO PRN (02:41)
[2023-11-10 04:00] VITALS: BP 119/84; PULSE 84; RESP 18; TEMP 97.7
[2023-11-10 04:17] LABS: HEMATOCRIT 24.9 % (36-48); MEAN CORPUSCULAR HEMOGLOBIN 32.4 pg (27.0-33.0); MEAN CORPUSCULAR HGB CONC 30.9 g/dL (32.0-36.0); MEAN CORPUSCULAR VOLUME 104.6 fL (79-99); RED BLOOD CELL COUNT(AUTO) 2.38 MIL/uL (4.00-5.50); RED CELL DISTRIBUTION WIDTH 21.3 % (11.0-15.5)
[2023-11-10 04:36] LABS: CREATININE 0.7 mg/dL (0.5-1.0); POTASSIUM 3.1 mmol/L (3.5-5.1)
[2023-11-10 07:48] LABS: ALBUMIN 1.7 g/dL (3.5-5.0); BILIRUBIN,TOTAL 0.5 mg/dL (0.2-1.0); TOTAL PROTEIN, SERUM 4.5 g/dL (6.0-8.3)
[2023-11-10 08:00] VITALS: BP 126/84; PULSE 89; RESP 17; TEMP 98.2; O2SAT 93
[2023-11-10 12:00] VITALS: BP 123/73; PULSE 85; RESP 17; TEMP 98.2
[2023-11-10 16:00] VITALS: BP 112/77; PULSE 89; RESP 17; TEMP 98.6
[2023-11-10 20:00] VITALS: BP 120/74; PULSE 87; RESP 18; TEMP 98.6; O2SAT 100
[2023-11-11] VITALS (8 sets, daily range): BP systolic 119–165; BP diastolic 71–98; PULSE 79–87; RESP 17–18; TEMP 98.1–98.6; O2SAT 97–98
[2023-11-11 05:21] LABS: BASOPHILS # (AUTO) 0.04 K/uL (0.00-0.20); BASOPHILS % (AUTO) 0.4 % (0.0-5.0); EOSINOPHILS # (AUTO) 0.04 K/uL (0.00-0.70); EOSINOPHILS % (AUTO) 0.4 % (0.0-8.0); HEMATOCRIT 24.9 % (36-48); IMMATURE GRANULOCYTE ABSOLUTE 0.18 K/uL (0-1); LYMPHOCYTES # (AUTO) 1.1 K/uL (1.0-4.8); LYMPHOCYTES % (AUTO) 11.2 % (21.0-51.0); MEAN CORPUSCULAR HEMOGLOBIN 32.2 pg (27.0-33.0); MEAN CORPUSCULAR HGB CONC 30.9 g/dL (32.0-36.0); MEAN CORPUSCULAR VOLUME 104.2 fL (79-99); MONOCYTES # (AUTO) 0.7 K/uL (0.1-1.0); MONOCYTES % (AUTO) 7.2 % (3.0-13.0); NEUTROPHILS # (AUTO) 7.7 K/uL (1.8-7.7); PLATELET COUNT (AUTO) 469 K/uL (130-400); RED BLOOD CELL COUNT(AUTO) 2.39 MIL/uL (4.00-5.50); RED CELL DISTRIBUTION WIDTH 21.7 % (11.0-15.5); WHITE BLOOD COUNT (AUTO) 9.8 K/uL (4.8-10.8)
[2023-11-11 05:43] LABS: CREATININE 0.6 mg/dL (0.5-1.0); POTASSIUM 3.4 mmol/L (3.5-5.1)
[2023-11-11] MEDS: ondanSETRON 4MG INJ IVP PRN (21:48)
[2023-11-12] VITALS (8 sets, daily range): BP systolic 123–145; BP diastolic 52–88; PULSE 81–88; RESP 17–20; TEMP 97.4–98.5; O2SAT 97
[2023-11-13] VITALS (7 sets, daily range): BP systolic 94–142; BP diastolic 56–84; PULSE 69–85; RESP 18–19; TEMP 97.6–99; O2SAT 95
== END 2023-11-13 15:50 | DRG 441 ==
LOC: 4BH 18:00
PROVIDERS: ADMIT Hospitalist; ATTEND Hospitalist
PROC: 0DH67UZ Insertion of Feeding Device into Stomach, Via Natural or Artificial Opening (ICD-10-PCS; principal; 2023-11-08)
PROC: 02HV33Z Insertion of Infusion Device into Superior Vena Cava, Percutaneous Approach (ICD-10-PCS; 2023-11-08)
DX: K76.82 Hepatic encephalopathy (principal); E43 Unspecified severe protein-calorie malnutrition; G93.41 Metabolic encephalopathy; N17.9 Acute kidney failure, unspecified; E72.20 Disorder of urea cycle metabolism, unspecified; J90 Pleural effusion, not elsewhere classified; J98.11 Atelectasis; E86.0 Dehydration; Z20.822 Contact with and (suspected) exposure to COVID-19; K76.0 Fatty (change of) liver, not elsewhere classified; R62.7 Adult failure to thrive; E87.6 Hypokalemia; E88.09 Other disorders of plasma-protein metabolism, not elsewhere classified; E83.51 Hypocalcemia; E83.42 Hypomagnesemia; D75.839 Thrombocytosis, unspecified; I12.9 Hypertensive chronic kidney disease with stage 1 through stage 4 chronic kidney disease, or unspecified chronic kidney disease; N18.2 Chronic kidney disease, stage 2 (mild); E03.9 Hypothyroidism, unspecified; D63.8 Anemia in other chronic diseases classified elsewhere; F41.9 Anxiety disorder, unspecified; Z79.01 Long term (current) use of anticoagulants; Z79.899 Other long term (current) drug therapy; Z98.84 Bariatric surgery status; Z86.711 Personal history of pulmonary embolism; Z86.718 Personal history of other venous thrombosis and embolism; Z68.35 Body mass index [BMI] 35.0-35.9, adult
CPT/HCPCS: 36415; 36600; 43752; 71045; 71275; 74174; 74230; 76705; 80048; 80053; 80076; 81001; 82140; 82150; 82248; 82306; 82435; 82607; 82728; 82746; 82803; 82947; 82948; 83036; 83605; 83690; 83735; 83880; 84100; 84132; 84145; 84207; 84295; 84425; 84443; 84466; 85018; 85025; 85027; 85378; 85610; 85730; 86850; 86900; 86901; 87040; 87635; 87804; 87880; 92611; 93306; 93970; G0378; J0692; J1885; J2248; J2405; J2470; J2765; J3475; J3480; J7070; P9047; Q0167; Q9967

== ENCOUNTER → 2024-01-15 | Outpatient (CLI) | payer OTHER ==
[~2024-01-15] MED LIST changes: -CYAN100T45 PO; +LIDOCAINE HCL 2% VISCOUS 15 ML UDCUP PO ONE
--- NOTE | 2024-01-15 11:15 | NUR ---
RE: DOP JORGE PLACEMENT BY IR FEEDING TUBE PLACEMENT ATTEMPTED BY DR Marlena DODD BUT UNSUCCESSFUL. INSERTION ATTEMPTS TO EACH NOSTRIL BUT DR Marlena DODD WAS UNABLE TO PASS THE CATHETER PAST THE OROPHARYNX. PATIENT STOPPED PROCEDURE AFTER SEVERAL ATTEMPT. DR Marlena DODD EXPLAINED TO OUTCOME TO AND PATIENT. DR Yoan BALDWIN'S OFFICE CALLED AND SPOKE WITH AXEL MICHELLE WITH PROCEDURE OUTCOME. PATIENT DISCHARGED POST PROCEDURE.
--- NOTE | 2024-01-15 12:34 | HMCIMG ---
DOBHOFF PLACEMENT IR REASON: POSTGASTRIC SURGERY SYNDROME, NAUSEA, VOMITING, BARIATRIC SURGERY STATUS COMPARISON: None TECHNIQUE: Dobbhoff catheter placement was attempted with fluoroscopic technique. Xylocaine and a jelly was placed in the right nostril. Multiple attempts were made to pass the tube and the guidewire through the right nostril, without success. Procedure was attempted on the left following administration of nasal Xylocaine gel. These attempts also were fluoroscopically guided and also were unsuccessful. Patient requested that the attempts to be terminated at this time. IMPRESSION: 1. Unable to place Dobbhoff tube as described above. 2. Fluoroscopy time 0.9 minutes.
== END | disposition home or self-care (01) ==
LOC: RAH 08:52
PROVIDERS: ATTEND Surgery
DX: K91.1 Postgastric surgery syndromes (principal); R11.2 Nausea with vomiting, unspecified; J44.9 Chronic obstructive pulmonary disease, unspecified; F32.A Depression, unspecified; K21.9 Gastro-esophageal reflux disease without esophagitis; F41.9 Anxiety disorder, unspecified; G43.909 Migraine, unspecified, not intractable, without status migrainosus; E66.9 Obesity, unspecified; G47.33 Obstructive sleep apnea (adult) (pediatric); M19.041 Primary osteoarthritis, right hand; M19.042 Primary osteoarthritis, left hand; E78.00 Pure hypercholesterolemia, unspecified; Z79.899 Other long term (current) drug therapy; Z98.84 Bariatric surgery status; Z53.8 Procedure and treatment not carried out for other reasons
CPT/HCPCS: 43752; 44500

== ENCOUNTER 2024-07-04 17:05 | Emergency (ER) | payer OTHER ==
[~2024-07-04] VITALS: Ht 160 cm; Wt 48.1 kg
[~2024-07-04 17:05] MED LIST changes: +ACET-2247 PO; +ALBUTEROL IH; -APIX5TAB PO; +ASPI-1197 PO; +CITA-108 PO; +CYAN100T45 PO; +FERS325 PO; +FOLIC ACID PO; +LEVO150C5 PO; -LIDOCAINE HCL 2% VISCOUS 15 ML UDCUP PO ONE; +METO-391 PO; -METO5TAB87 PO; +MIDO5TAB4 PO; +MULT-1367 PO; +NIAC-47 PO; +ONDA-105 PO; +PROM25TA7 PO
[2024-07-04 18:14] LABS: BASOPHILS # (AUTO) 0.03 K/uL (0.00-0.20); BASOPHILS % (AUTO) 0.5 % (0.0-5.0); EOSINOPHILS # (AUTO) 0.05 K/uL (0.00-0.70); EOSINOPHILS % (AUTO) 0.8 % (0.0-8.0); HEMATOCRIT 35.9 % (36-48); IMMATURE GRANULOCYTE ABSOLUTE 0.01 K/uL (0-1); LYMPHOCYTES % (AUTO) 16.1 % (21.0-51.0); MEAN CORPUSCULAR HEMOGLOBIN 35.4 pg (27.0-33.0); MEAN CORPUSCULAR HGB CONC 32.3 g/dL (32.0-36.0); MEAN CORPUSCULAR VOLUME 109.5 fL (79-99); MONOCYTES # (AUTO) 0.5 K/uL (0.1-1.0); MONOCYTES % (AUTO) 9.1 % (3.0-13.0); NEUTROPHILS # (AUTO) 4.3 K/uL (1.8-7.7); NEUTROPHILS % (AUTO) 73.3 % (40.0-77.0); PLATELET COUNT (AUTO) 514 K/uL (130-400); RED BLOOD CELL COUNT(AUTO) 3.28 MIL/uL (4.00-5.50); RED CELL DISTRIBUTION WIDTH 13.9 % (11.0-15.5); WHITE BLOOD COUNT (AUTO) 5.9 K/uL (4.8-10.8)
--- NOTE | 2024-07-04 18:30 | NUR ---
PT REFUSED TORADOL. REQUESTED MORPHINE. INFORMED LIVING ADVISOR.
[2024-07-04 18:44] LABS: CREATININE 0.3 mg/dL (0.5-1.0)
[2024-07-04] MEDS: ketOROlac 30MG VIAL (30MG/ML) IVP ONE (19:08)
--- NOTE | 2024-07-04 19:19 | ERN ---
ED Note History of Present Illness Stated Complaint: PEG TUBE REPLACEMENT Chief Complaint: Other Problems Time Seen by MD: 17:12 Time Seen by Midlevel: 17:12 Dictation: The patient is a 54-year-old female with a history of PEG tube due to malnutrition, gastric bypass, colon resection, diverticulitis who presents to the emergency department with complaints of clogged PEG tube onset this morning. Patient reports upper abdominal pain. Reports that she usually gets pain when it is clogged. Denies any nausea or vomiting. Denies any diarrhea or fevers. Reports constipation. Allergies: Coded Allergies: No Known Drug Allergies (Unverified Allergy, Unknown, 07/17/23) PT STATES NO ALLERGIES TO ANY MEDICATIONS Home Meds Active Scripts Midodrine HCl (Midodrine HCl) 5 Mg Tablet, 1 TAB PO TID for 30 Days, #90 TAB 0 Refills Prov:CAMELIA WADE MACHINE CLOTH TRIMMER 05/22/24 Promethazine HCl (Promethazine HCl) 25 Mg Tablet, 1 TAB PO Q6HPRN PRN for nausea/vomiting for 5 Days, #20 TAB 0 Refills Prov:CAMELIA WADE MACHINE CLOTH TRIMMER 05/22/24 Acetaminophen (Tylenol) 325 Mg Tablet, 1 TAB PO Q6HPRN PRN for pain or fever for 5 Days, #30 TAB 0 Refills Prov:CAMELIA WADE [facility] 05/22/24 Reported Medications [Albuterol] No Conflict Check, 1 PUFF IH AD PRN for SHORTNESS OF BREATH/WHEEZING 05/20/24 Cyanocobalamin (Vitamin B-12) (Vitamin B-12) 100 Mcg Tablet, 100 MCG PO DAILY, TAB 05/20/24 Ondansetron HCl (Ondansetron HCl) 8 Mg Tablet, 8 MG PO DAILY, TAB 05/20/24 Niacin (Niacin) 500 Mg Tablet.er, 500 MG PO HS, TAB 05/20/24 Multivitamin (Multivitamin) 1 Each Tablet, 1 EACH PO TID, TAB 05/20/24 Metoprolol Succinate (Metoprolol Succinate) 50 Mg Tab.er.24h, 2 TAB PO HS for 30 Days, #30 TAB 0 Refills 05/20/24 Levothyroxine Sodium (Levothyroxine) 150 Mcg Capsule, 150 MCG PO DAILY, CAP 05/20/24 [Folic Acid] No Conflict Check, 1 TAB PO DAILY 3/19/25 Ferrous Sulfate (Ferrous Sulfate) 325 Mg (65 Mg Iron) Ectab, 1 TAB PO DAILY for 30 Days, #30 TAB 0 Refills 05/20/24 Citalopram Hydrobromide (Citalopram HBr) 40 Mg Tablet, 40 MG PO HS, TAB 05/20/24 Aspirin (Aspirin) 81 Mg Tab.chew, 81 MG PO DAILY, TAB.CHEW 05/20/24 Metoprolol Succinate (Metoprolol Succinate) 50 Mg Tab.er.24h, 50 MG PO AM, TAB 02/24/24 Past Medical History Past Medical History: Hypertension Additional Past Medical Hx: LT ARM BLOOD CLOT. PICC LINE KATJA. ESOPHAGEAL ISSUES Surgical History: Other Surgical History Other: GASTRIC BYPASS Family History: Negative Social History: Lives with family History: Not Applicable RN Note Reviewed/Agreed w/PFSH: Yes Review of System Dictation Constitutional: Negative for fever,chills, and weight loss Eyes: Negative for injury, pain,redness, and discharge ENT: Negative for injury,pain or swelling Cardiovascular: Negative for chest pain, palpitations, and edema Respiratory: Negative for shortness of breath, cough, and wheezing, Abdomen/GI: Negative for , nausea, vomiting, diarrhea, positive for abdominal pain, constipation, clogged PEG tube Back: Negative for injury and pain : Negative for injury, bleeding and discharge MS/Extremity: Negative for injury and deformity Skin: Negative for rash, and discoloration Neuro: Negative for headache, weakness, numbness, tingling, and seizure Psych: Negative for suicide ideation, homicidal ideation, and hallucinations Initial Vital Sign VS Vital Signs Date Time Temp Pulse Resp B/P (MAP) Pulse Ox O2 Delivery O2 Flow Rate FiO2 07/04/24 17:07 99.0 69 20 102/43 97 Room Air 07/04/24 17:30 0 21 Physical Exam Dictation Vital Signs reviewed General Appearance: Alert, oriented x 3, no acute distress, malnourished Head and Face: non-traumatic. Eyes: PERRL, pink conjunctivas, eyelid no trauma, anterior chamber with arcus senilis. Ears: Pinnas intact and no signs of trauma or erythema ear canals clear and no discharge TM no erythema Nose: No discharge, no bleeding. Oropharynx: Mouth normal, tongue pink. pharynx clear,no erythema, tonsils no exudates, no abscesses noted, mucous membrane moist Neck: Supple, non-tender, no thyromegaly, no masses, no JVD, no bruits Breast:Deferred Chest:No tenderness, no crepitus, no paradoxical movement, no retractions Lungs:Clear, well-ventilated, symmetric, no rales, no wheezing, no rhonchi, no stridor, good breath sounds bilaterally Heart: Regular rate, regular rhythm, no murmur, no gallops Vascular: no peripheral edema, Abdomen: Soft, positive bowel sounds, nondistended, no guarding, nontender, no rebound, no masses no hepatomegaly, no splenomegaly, no Cheung's sign, no hernias. Peg tube noted to left upper quadrant Rectal: Deferred Genital: Deferred Neurological: Normal speech, motor function intact, sensory function intact Musculoskeletal: Neck nontender, full range of motion, back nontender, full range of motion, Extremities: nontender, full range of motion Skin: Color pink, dry, no turgor, no rash, no lacerations, no abrasions, no contusions. Lymphatic: Deferred Results (Laboratory/Radiology) Laboratory/Radiology Laboratory Tests Test 07/04/24 18:01 White Blood Count 5.9 K/uL (4.8-10.8) Red Blood Count 3.28 MIL/uL (4.00-5.50) L Hemoglobin 11.6 g/dL (12.0-16.0) L Hematocrit 35.9 % (36-48) L Mean Corpuscular Volume 109.5 fL (79-99) H Mean Corpuscular Hemoglobin 35.4 pg (27.0-33.0) H Mean Corpuscular Hemoglobin Concent 32.3 g/dL (32.0-36.0) Red Cell Distribution Width 13.9 % (11.0-15.5) Platelet Count 514 K/uL (130-400) H Mean Platelet Volume 9.2 fL (7.5-10.5) Immature Granulocyte % (Auto) 0.2 % (0-1) Neutrophils (%) (Auto) 73.3 % (40.0-77.0) Lymphocytes (%) (Auto) 16.1 % (21.0-51.0) L Monocytes (%) (Auto) 9.1 % (3.0-13.0) Eosinophils (%) (Auto) 0.8 % (0.0-8.0) Basophils (%) (Auto) 0.5 % (0.0-5.0) Neutrophils # (Auto) 4.3 K/uL (1.8-7.7) Lymphocytes # (Auto) 1.0 K/uL (1.0-4.8) Monocytes # (Auto) 0.5 K/uL (0.1-1.0) Eosinophils # (Auto) 0.05 K/uL (0.00-0.70) Basophils # (Auto) 0.03 K/uL (0.00-0.20) Absolute Immature Granulocyte (auto 0.01 K/uL (0-1) Nucleated Red Blood Cells 0.0 % (0.0-0.19) Red Blood Cell Morphology See comments Sodium Level 141 mmol/L (136-145) Potassium Level 3.0 mmol/L (3.5-5.1) *L Chloride Level 104 mmol/L (101-111) Carbon Dioxide Level 34 mmol/L (21-32) H Blood Urea Nitrogen 16 mg/dL (7-18) Creatinine 0.3 mg/dL (0.5-1.0) L Glomerular Filtration Rate Calc 127 mL/min (>90) Random Glucose 106 mg/dL (70-105) H Total Calcium 9.6 mg/dL (8.5-10.1) Lipase 11 U/L (16-77) L Labs Reviewed?: Yes ED Course ED Course Orders Procedure Category Date Status Time Cbc With Differential LAB 07/04/24 Complete 17:38 Lipase LAB 07/04/24 Complete 17:38 Basic Metabolic Panel LAB 07/04/24 Complete 17:38 *Nursing CPOE 07/04/24 Transmitted Communication: 17:38 Ketorolac PHA 07/04/24 Complete Tromethamine 30mg/Ml 18:00 Morphine 2mg Syg PHA 07/04/24 Complete (Morphine 2mg Syg) 19:30 Morphine 2mg Syg PHA 07/04/24 Complete (Morphine 2mg Syg) 21:30 Ondansetron 4mg Inj PHA 07/04/24 Complete (Zofran 4mg Inj) 21:30 Morphine 2mg Syg PHA 07/04/24 Complete (Morphine 2mg Syg) 21:30 Abd 1vw RAD 5/3/25 Resulted 21:09 Diatr PHA 07/04/24 Complete Meglu/Diatrizoate 21:24 Current Medications Medications (Trade) Dose Ordered Sig/Chica Route PRN Reason Start Time Stop Time Status Last Admin Dose Admin Diatrizoate Meglum/ Diatrizoate Sod (Gastrografin 66-10 Solution) 30 ml STK-MED ONCE .ROUTE 07/04/24 21:24 07/04/24 21:24 DC Ketorolac Tromethamine (toRADol) 30 mg ONCE ONCE IVP 07/04/24 18:00 07/04/24 18:01 DC Morphine Sulfate (morPHINE 2MG SYG) 1 mg ONCE ONCE IVP 07/04/24 21:30 07/04/24 21:11 DC Morphine Sulfate (morPHINE 2MG SYG) 1 mg ONCE ONCE IVP 07/04/24 21:30 07/04/24 21:31 DC 07/04/24 21:17 Morphine Sulfate (morPHINE 2MG SYG) 2 mg ONCE ONCE IVP 07/04/24 19:30 07/04/24 19:31 DC 07/04/24 19:20 Ondansetron HCl (zoFRAN 4MG INJ) 4 mg ONCE ONCE IVP 07/04/24 21:30 07/04/24 21:31 DC 07/04/24 21:17 Vital Signs Date Time Temp Pulse Resp B/P (MAP) Pulse Ox O2 Delivery O2 Flow Rate FiO2 07/04/24 21:29 98.2 104 18 106/72 96 Room Air* 0 21 07/04/24 19:57 103 18 109/77 98 Room Air* 0 21 07/04/24 18:44 98.1 103 18 105/76 98 Room Air* 0 21 07/04/24 17:30 98.1 104 18 101/74 98 Room Air* 0 21 07/04/24 17:07 99.0 69 20 102/43 97 Room Air [place] [address] [address] IMAGING REPORT Signed PATIENT: RACHELLE CHAVIRA MR#: [id number] : 1970 SEX: F AGE: 54 LOCATION: [facility] ORDER 11 STATUS: REG ER REPORT#: [id number] SERVICE 08 REASON: peg tube replaced/ gastrografin ORDERING PHYSICIAN: CASSIE ARCHER PROCEDURE: ABD 1VW - ABD 1VW ABD 1VW CLINICAL HISTORY: peg tube replaced/ gastrografin COMPARISON: 06/10/2024 FINDINGS: Single view of the abdomen was obtained. The PEG tube appears to be in good position. There is contrast within the gastric lumen and duodenum. IMPRESSION: The PEG tube appears to remain in good position DICTATED BY: GLENROY GARVIN DO DATE: 07/04/242144 ELECTRONICALLY SIGNED BY: GLENROY GARVIN DO DATE: 07/04/242148 Medical Decision Making MDM MDM: Differential diagnosis: PEG tube evaluation, PEG tube malfunction, PEG tube replacement There are no social concerns with this patient. Prescription drug management Prescriptions will include: None Medical management and examination interpretation discussions were had by me with other qualified healthcare professionals as indicated for the patient's care. DX & DISP Disposition: Discharge Departure Impression: Primary Impression: PEG tube malfunction Additional Impression: Hypokalemia Condition: Stable Referrals: GERMAN GARCIA (PCP) I have reviewed the case, and I agree with, Diagnosis and Plan I performed the substantive portion of the visit. I have reviewed and personally made and approve the management plan that is documented in the note by myself or the CRISTOBAL. I acknowledge for responsibility for the patient's management plan. BRITTA FLANAGAN July 04, 2024 19:19 CASSIE ARCHER July 04, 2024 22:00
[2024-07-04] MEDS: morPHINE 2 MG SYG IVP ONE ×2 (19:20→21:17)
--- NOTE | 2024-07-04 19:46 | NUR ---
PEG TUBE CLOGGED, NOT ABLE TO FLUSH OR PULL BACK ANYTHING.
[2024-07-04] MEDS: ondanSETRON 4MG INJ IVP ONE (21:17)
[2024-07-04] MEDS ORDERED: DIATR MEGLU/DIATRIZOATE SODIUM 30 ML BOTTLE ONE (21:24)
[2024-07-04] MEDS ORDERED: morPHINE 2 MG SYG IVP ONE (21:30)
--- NOTE | 2024-07-04 21:49 | HMCIMG ---
ABD 1VW CLINICAL HISTORY: peg tube replaced/ gastrografin COMPARISON: 06/10/2024 FINDINGS: Single view of the abdomen was obtained. The PEG tube appears to be in good position. There is contrast within the gastric lumen and duodenum. IMPRESSION: The PEG tube appears to remain in good position
[2024-07-04] MEDS: PoTASSium BIcarbonate/CIT AC 25 MEQ TABLET.EFF PO ONE (22:19)
--- NOTE | 2024-07-04 22:35 | NUR ---
CALLED REPORT TO [facility].
--- NOTE | 2024-07-04 22:40 | NUR ---
CALLED [facility] FOR PATIENT TRANSFER.
[2024-07-05 00:54] VITALS: BP 101/68; PULSE 96; RESP 16; TEMP 98; O2SAT 97
== END 2024-07-05 00:55 ==
LOC: EDH 17:05
DX: K94.23 Gastrostomy malfunction (principal); E87.6 Hypokalemia; I10 Essential (primary) hypertension; Z79.82 Long term (current) use of aspirin; Z79.890 Hormone replacement therapy; Z98.84 Bariatric surgery status
CPT/HCPCS: 99285; 96374; 96375; 80048; 83690; 85025; 36415; 74018; 96376; Q9963; J2270 ×2; J2405; 99284; J1885

== ENCOUNTER 2024-07-21 12:18 | Emergency (ER) | payer OTHER ==
[~2024-07-21] VITALS: Ht 160 cm; Wt 50.3 kg
[~2024-07-21 12:18] MED LIST changes: -NIAC-47 PO; +NIAC500T24 PO
[2024-07-21] MEDS: ketOROlac 30MG VIAL (30MG/ML) IM ONE (13:51)
[2024-07-21] MEDS: ketOROlac 30MG VIAL (30MG/ML) ONE (13:52)
[2024-07-21] MEDS ORDERED: DIATR MEGLU/DIATRIZOATE SODIUM 30 ML BOTTLE ONE (14:19)
--- NOTE | 2024-07-21 14:41 | ERN ---
General Chief Complaint: Other Problems Stated Complaint: PEG TUBE Time Seen by MD: 12:23 Source: patient History of Present Illness Initial Comments PATIENT IS A 54-YEAR-OLD FEMALE COMING IN TO BE EVALUATED FOR PEG TUBE MALFUNCTION. PER PATIENT SHE HAS BEEN HAVING PROBLEMS USING THE PEG TUBE IT IS CLOGGED. Allergies: Coded Allergies: No Known Drug Allergies (Unverified Allergy, Unknown, 07/17/23) PT STATES NO ALLERGIES TO ANY MEDICATIONS Home Meds Active Scripts Midodrine HCl (Midodrine HCl) 5 Mg Tablet, 1 TAB PO TID for 30 Days, #90 TAB 0 Refills Prov:CAMELIA WADE [employer]ODU[employer] TESTER 05/22/24 Promethazine HCl (Promethazine HCl) 25 Mg Tablet, 1 TAB PO Q6HPRN PRN for nausea/vomiting for 5 Days, #20 TAB 0 Refills Prov:CAMELIA WADE [facility] 05/22/24 Acetaminophen (Tylenol) 325 Mg Tablet, 1 TAB PO Q6HPRN PRN for pain or fever for 5 Days, #30 TAB 0 Refills Prov:CAMELIA WADE [facility] 05/22/24 Reported Medications [Albuterol] No Conflict Check, 1 PUFF IH AD PRN for SHORTNESS OF BREATH/WHEEZING 05/20/24 Cyanocobalamin (Vitamin B-12) (Vitamin B-12) 100 Mcg Tablet, 100 MCG PO DAILY, TAB 05/20/24 Ondansetron HCl (Ondansetron HCl) 8 Mg Tablet, 8 MG PO DAILY, TAB 05/20/24 Niacin (Niacin) 500 Mg Tablet.er, 500 MG PO HS, TAB 05/20/24 Multivitamin (Multivitamin) 1 Each Tablet, 1 EACH PO TID, TAB 05/20/24 Metoprolol Succinate (Metoprolol Succinate) 50 Mg Tab.er.24h, 2 TAB PO HS for 30 Days, #30 TAB 0 Refills 05/20/24 Levothyroxine Sodium (Levothyroxine) 150 Mcg Capsule, 150 MCG PO DAILY, CAP 05/20/24 [Folic Acid] No Conflict Check, 1 TAB PO DAILY 05/20/24 Ferrous Sulfate (Ferrous Sulfate) 325 Mg (65 Mg Iron) Ectab, 1 TAB PO DAILY for 30 Days, #30 TAB 0 Refills 05/20/24 Citalopram Hydrobromide (Citalopram HBr) 40 Mg Tablet, 40 MG PO HS, TAB 05/20/24 Aspirin (Aspirin) 81 Mg Tab.chew, 81 MG PO DAILY, TAB.CHEW 05/20/24 Metoprolol Succinate (Metoprolol Succinate) 50 Mg Tab.er.24h, 50 MG PO AM, TAB 02/24/24 Past Medical History Past Medical History: Anemia, Anxiety, Depression, Diverticulitis, GERD, Hypertension, Hypothyroid, Hypotension Medical History Other: LT ARM BLOOD CLOT. PICC LINE KATJA. ESOPHAGEAL ISSUES Past Surgical History: Other, Surgical History Other: PEG TUBE, NECK SX, BARIATRIC SX Family History Family History: Negative Social History Social History: Lives with family Female( History) History: Not Applicable ROS Dictation CONSTITUTIONAL: NO CHILLS, NO FEVER, NO WEAKNESS, NO DIAPHORESIS, NO MALAISE. HEAD/FACE: NO SIGNS OF TRAUMA. EENT: NO EYE PAIN, NO BLURRED VISION, NO TEARING, NO DOUBLE VISION, NO EAR PAIN, NO EAR DISCHARGE, NO NOSE PAIN, NO NASAL CONGESTION, NO THROAT PAIN, NO THROAT SWELLING, NO MOUTH PAIN. RESPIRATORY: NO COUGH, NO ORTHOPNEA, NO SOB, NO STRIDOR, NO WHEEZING. CARDIOVASCULAR: NO CHEST PAIN, NO EDEMA, NO PALPITATIONS, NO SYNCOPE. GASTROINTESTINAL/ABDOMINAL: NO ABDOMINAL PAIN, NO CONSTIPATION, NO DIARRHEA, NO NAUSEA, NO VOMITING. GENITOURINARY: NO ABNORMAL DISCHARGE, NO DYSURIA, NO FREQUENT URINATION, NO HE MATURIA. NO COMPLAINTS OF PAIN IN THE GENITALS. MUSCULOSKELETAL: NO BACK PAIN, NO GOUT, NO JOINT PAIN, NO JOINT SWELLING, NO M USCLE PAIN, NO MUSCLE STIFFNESS, NO NECK PAIN. INTEGUMENTARY: NO CHANGE IN COLOR, NO CHANGE IN HAIR/NAILS, NO DRYNESS, NO LESI ON, NO LUMPS, NO RASH. NEUROLOGICAL/PSYCH: NO ANXIETY, NOT DEPRESSED, NO EMOTIONAL PROBLEM, NO HEADACHE, NO NUMBNESS, NO PRE-EXISTING DEFICIT, NO HISTORY OF SEIZURES, NO TREMORS, NO WEAKNESS. HEMATOLOGIC/LYMPHATIC: NOT ANEMIC, NO HISTORY OF BLOOD CLOTS, NO APPARENT BLEEDING, NO BRUISING, GLANDS NOT SWOLLEN. ALL SYSTEMS NEGATIVE, EXCEPT NOTED. Physical Exam Physical Exam Dictation VITAL SIGNS: REVIEWED. GENERAL APPEARANCE: ALERT, ORIENTED X3, NO ACUTE DISTRESS, OBESE. HEAD AND FACE: NON-TRAUMATIC. EYES: PERRL, PINK CONJUNCTIVAS, EYELID NO TRAUMA, ANTERIOR CHAMBER CLEAR. EARS: PINNAS INTACT AND NO SIGNS OF TRAUMA OR ERYTHEMA. EAR CANALS CLEAR AND NO DISCHARGE. TMS NO ERYTHEMA. NOSE: NO DISCHARGE, NO BLEEDING. OROPHARYNX: MOUTH NORMAL, TEETH NO CARIES, TONGUE PINK. PHARYNX CLEAR, NO ERYTHEMA. TONSILS NO EXUDATES, NO ABSCESSES NOTED. MUCOUS MEMBRANE MOIST. NECK: SUPPLE, NON-TENDER, NO THYROMEGALY, NO MASSES, NO JVD, NO BRUITS. BREAST: DEFERRED. CHEST: NO TENDERNESS, NO CREPITUS, NO PARADOXICAL MOVEMENT, NO RETRACTIONS. LUNGS: CLEAR, WELL-VENTILATED, SYMMETRIC, NO RALES, NO WHEEZING, NO RHONCHI, NO STRIDOR, GOOD BREATH SOUNDS BILATERALLY. HEART: REGULAR RATE, REGULAR RHYTHM, NO MURMUR, NO GALLOPS. VASCULAR: NO PERIPHERAL EDEMA. ABDOMEN: SOFT, POSITIVE BOWEL SOUNDS, NONDISTENDED, PEG TUBE IN PLACE, NO GUARDING, NONTENDER, NO REBOUND, NO MASSES NO HEPATOMEGALY, NO SPLENOMEGALY, NO RUBIO'S SIGN, NO HERNIAS. RECTAL: DEFERRED. GENITAL: DEFERRED. NEUROLOGICAL: NORMAL SPEECH, GROSS MOTOR FUNCTION INTACT, GROSS SENSORY FUNCTION INTACT. MUSCULOSKELETAL: NECK NONTENDER, FULL RANGE OF MOTION, BACK NONTENDER, FULL RANGE OF MOTION. EXTREMITIES: NONTENDER, FULL RANGE OF MOTION. SKIN: COLOR PINK, DRY, NO TURGOR, NO RASH, NO LACERATIONS, NO ABRASIONS, NO CONTUSIONS. LYMPHATICS: DEFERRED. Results Laboratory and Microbiology Labs Reviewed?: Yes EKG/XRAY/US/CT/MRI X-RAY Comment [address] [address] IMAGING REPORT Signed PATIENT: RACHELLE CHAVIRA MR#: [id number] : 1970 SEX: F AGE: 54 LOCATION: [facility] ORDER 34 STATUS: REG REPORT#: [id number] SERVICE 34 REASON: GASTROGRAFFIN ORDERING PHYSICIAN: LAURA RUIZ MD PROCEDURE: ABD 1VW - ABD 1VW ABD 1VW HISTORY: Gastrografin COMPARISON: None FINDINGS: A frontal projection of the abdomen was obtained. Contrast was given through the PEG tube with opacification of the stomach. No extravasation contrast is seen. Post cholecystectomy changes are seen. A nonspecific bowel gas pattern is seen. Fecal material is seen in the colon. Degenerative changes of the thoracolumbar spine are noted. IMPRESSION: 1. A nonspecific bowel gas pattern is seen. Peg tube is seen with distal tip in the stomach. Fecal material is seen in the colon. DICTATED BY: DANIELLE CARNES MD DATE: 07/21/24 1452 ELECTRONICALLY SIGNED BY: DANIELLE CARNES MD DATE: 07/21/24 1501 [facility] MDM: DIFFERENTIAL DIAGNOSIS: PEG TUBE REPLACEMENT, PEG TUBE MALFUNCTION, RATIONALE: TESTS CONSIDERED AND ORDERED SECONDARY TO SHARED DECISION MAKING INCLUDE: PREVIOUS OUTSIDE RECORDS REVIEWED: OLD ER VISITS. RISK OF COMPLICATION AND/OR MORBIDITY OR MORTALITY OF PATIENT MANAGEMENT: NONE MEDICATIONS-PER MEDICATION RECONCILIATION NEED FOR HOSPITALIZATION: PATIENT DOES NOT MEET CRITERIA FOR HOSPITALIZATION. PATIENT IS A 53-YEAR-OLD FEMALE COMING IN DUE TO CLOGGED PEG TUBE. PEG TUBE WAS REPLACED. X-RAY CONFIRMS PHYSICIAN. PATIENT WILL BE DISCHARGED IN STABLE CONDITION ED Course Orders Procedure Category Date Status Time Ketorolac PHA 07/21/24 Complete Tromethamine 30mg/Ml 13:27 Ketorolac PHA 07/21/24 Complete Tromethamine 30mg/Ml 14:00 Abd 1vw RAD 07/21/24 Resulted 13:35 Diatr PHA 07/21/24 Complete Meglu/Diatrizoate 14:19 Current Medications Medications (Trade) Dose Ordered Sig/Chica Route PRN Reason Start Time Stop Time Status Last Admin Dose Admin Diatrizoate Meglum/ Diatrizoate Sod (Gastrografin 66-10 Solution) 30 ml STK-MED ONCE .ROUTE 07/21/24 14:19 07/21/24 14:20 DC Ketorolac Tromethamine (toRADol) 30 mg ONCE ONCE IM 07/21/24 14:00 07/21/24 14:01 DC 07/21/24 13:51 Ketorolac Tromethamine (toRADol) 30 mg STK-MED ONCE .ROUTE 07/21/24 13:27 07/21/24 13:28 DC Vital Signs Date Time Temp Pulse Resp B/P (MAP) Pulse Ox O2 Delivery O2 Flow Rate FiO2 07/21/24 13:22 99.5 96 12 92/64 97 Room Air* 0 21 07/21/24 12:19 99.3 99 16 103/71 98 Room Air 0 Procedure Dictation PEG TUBE WAS REPLACED DX & DISP Disposition: Discharge Departure Impression: Primary Impression: PEG tube malfunction Condition: Stable Additional Instructions: FOLLOW-UP WITH PRIMARY CARE PROVIDER IN 1 TO 2 DAYS. TAKE MEDICATIONS DIRECTED HERE IN THE EMERGENCY ROOM. OKAY TO CONTINUE HOME MEDICATIONS UNLESS OTHERWISE DISCUSSED DURING YOUR VISIT IN THE EMERGENCY ROOM TODAY. RETURN TO YOUR NEAREST EMERGENCY ROOM IF SYMPTOMS WORSEN OR IF THERE IS NO IMPROVEMENT. CALL 911 IF YOU NEED IMMEDIATE ASSISTANCE. TAKE TYLENOL [id number] NEEDED AND IF NO CONTRAINDICATIONS ARE PRESENT. INCREASE ORAL HYDRATION. A WOUND CULTURE OR URINE CULTURE WAS ORDERED HERE IN THE EMERGENCY ROOM DEPARTMENT PLEASE FOLLOW-UP WITH PRIMARY CARE PROVIDER AND ADVISE THEM TO GET REPEAT PORTS FROM OUR FACILITY. IF YOU HAD ANY ANNITA WRAP/SPLINTS THAT WERE APPLIED HERE, PLEASE DO NOT REMOVE THEM UNTIL YOU SEE YOUR PRIMARY CARE OR SPECIALTY. REFERRALS: Referrals: GERMAN GARCIA (PCP) Time of Disposition: 15:06 LAURA RUIZ MD July 21, 2024 14:41
--- NOTE | 2024-07-21 15:01 | HMCIMG ---
ABD 1VW HISTORY: Gastrografin COMPARISON: None FINDINGS: A frontal projection of the abdomen was obtained. Contrast was given through the PEG tube with opacification of the stomach. No extravasation contrast is seen. Post cholecystectomy changes are seen. A nonspecific bowel gas pattern is seen. Fecal material is seen in the colon. Degenerative changes of the thoracolumbar spine are noted. IMPRESSION: 1. A nonspecific bowel gas pattern is seen. Peg tube is seen with distal tip in the stomach. Fecal material is seen in the colon.
--- NOTE | 2024-07-21 15:23 | NUR ---
[facility] NOTIFIED OF TRANSFER. TRANSFER PAPERWORK FAXED.
[2024-07-21 17:14] VITALS: BP 99/64; PULSE 88; RESP 12; TEMP 98.7; O2SAT 98
== END 2024-07-21 17:15 | disposition home or self-care (01) ==
LOC: EDH 12:18
DX: K94.23 Gastrostomy malfunction (principal); E03.9 Hypothyroidism, unspecified; F32.A Depression, unspecified; I10 Essential (primary) hypertension; Z79.82 Long term (current) use of aspirin; Z79.890 Hormone replacement therapy
CPT/HCPCS: 99284; 43762; 74018; 96372; J1885; Q9963

== ENCOUNTER 2024-07-29 11:29 | Emergency (ER) | payer OTHER ==
[~2024-07-29] VITALS: Ht 160 cm; Wt 52.6 kg
--- NOTE | 2024-07-29 12:22 | ERN ---
General Chief Complaint: GTube Replancement/Malfunction Stated Complaint: PEG TUBE BROKE Time Seen by MD: 11:30 History of Present Illness Initial Comments 54-year-old female history of PEG tube brought in by EMS for PEG tube replacement. PEG tube clamping device is not working. Patient has had a for a few months. She does report pain at the site. Allergies: Coded Allergies: No Known Drug Allergies (Unverified Allergy, Unknown, 07/17/23) PT STATES NO ALLERGIES TO ANY MEDICATIONS Home Meds Active Scripts Midodrine HCl (Midodrine HCl) 5 Mg Tablet, 1 TAB PO TID for 30 Days, #90 TAB 0 Refills Prov:CAMELIA WADE [employer] 05/22/24 Promethazine HCl (Promethazine HCl) 25 Mg Tablet, 1 TAB PO Q6HPRN PRN for naus ea/vomiting for 5 Days, #20 TAB 0 Refills Prov:[facility]ADE [facility] 05/22/24 Acetaminophen (Tylenol) 325 Mg Tablet, 1 TAB PO Q6HPRN PRN for pain or fever for 5 Days, #30 TAB 0 Refills Prov:CAMEL[facility] WADE [facility] 05/22/24 Reported Medications [Albuterol] No Conflict Check, 1 PUFF IH AD PRN for SHORTNESS OF BREATH/WHEEZING 05/20/24 Cyanocobalamin (Vitamin B-12) (Vitamin B-12) 100 Mcg Tablet, 100 MCG PO DAILY, TAB 05/20/24 Ondansetron HCl (Ondansetron HCl) 8 Mg Tablet, 8 MG PO DAILY, TAB 05/20/24 Niacin (Niacin) 500 Mg Tablet.er, 500 MG PO HS, TAB 05/20/24 Multivitamin (Multivitamin) 1 Each Tablet, 1 EACH PO TID, TAB 05/20/24 Metoprolol Succinate (Metoprolol Succinate) 50 Mg Tab.er.24h, 2 TAB PO HS for 30 Days, #30 TAB 0 Refills 05/20/24 Levothyroxine Sodium (Levothyroxine) 150 Mcg Capsule, 150 MCG PO DAILY, CAP 05/20/24 [Folic Acid] No Conflict Check, 1 TAB PO DAILY 05/20/24 Ferrous Sulfate (Ferrous Sulfate) 325 Mg (65 Mg Iron) Ectab, 1 TAB PO DAILY for 30 Days, #30 TAB 0 Refills 05/20/24 Citalopram Hydrobromide (Citalopram HBr) 40 Mg Tablet, 40 MG PO HS, TAB 05/20/24 Aspirin (Aspirin) 81 Mg Tab.chew, 81 MG PO DAILY, TAB.CHEW 05/20/24 Metoprolol Succinate (Metoprolol Succinate) 50 Mg Tab.er.24h, 50 MG PO AM, TAB 02/24/24 Past Medical History Past Medical History: Anemia, Anxiety, Depression, Diverticulitis, GERD, Hypertension, Hypothyroid, Hypotension Medical History Other: LT ARM BLOOD CLOT. PICC LINE KATJA. ESOPHAGEAL ISSUES Past Surgical History: Other, Surgical History Other: PEG TUBE, NECK SX, BARIATRIC SX Family History Family History: Negative Social History Social History: Lives with family Female( History) History: Not Applicable ROS Dictation CONSTITUTIONAL: No chills, no fever, no weakness, no diaphoresis, no malaise. HEAD/FACE: No signs of trauma. EENT: No eye pain, no blurred vision, no tearing, no double vision, no ear pain, no ear discharge, no nose pain, no nasal congestion, no throat pain, no throat swelling, no mouth pain. RESPIRATORY: No cough, no orthopnea, no SOB, no stridor, no wheezing. CARDIOVASCULAR: No chest pain, no edema, no palpitations, no syncope. GASTROINTESTINAL/ABDOMINAL: Pain in the PEG insertion site GENITOURINARY: No abnormal discharge, no dysuria, no frequent urination, no hematuria. No complaints of pain in the genitals. MUSCULOSKELETAL: No back pain, no gout, no joint pain, no joint swelling, no muscle pain, no muscle stiffness, no neck pain. INTEGUMENTARY: No change in color, no change in hair/nails, no dryness, no lesion, no lumps, no rash. NEUROLOGICAL/PSYCH: No anxiety, not depressed, no emotional problem, no headache, no numbness, no pre-existing deficit, no history of seizures, no tremors, no weakness. HEMATOLOGIC/LYMPHATIC: Not anemic, no history of blood clots, no apparent bleeding, no bruising, glands not swollen. All Systems Negative, Except as Noted. Physical Exam Physical Exam Dictation VITAL SIGNS: Reviewed. GENERAL APPEARANCE: Alert, oriented x3, no acute distress, obese. HEAD AND FACE: Non-traumatic. EYES: PERRL, pink conjunctivas, eyelid no trauma, anterior chamber clear. EARS: Pinnas intact and no signs of trauma or erythema. Ear canals clear and no discharge. TMs no erythema. NOSE: No discharge, no bleeding. OROPHARYNX: Mouth normal, teeth no caries, tongue pink. Pharynx clear, no erythema. Tonsils no exudates, no abscesses noted. Mucous membrane moist. NECK: Supple, non-tender, no thyromegaly, no masses, no JVD, no bruits. BREAST: Deferred. CHEST: No tenderness, no crepitus, no paradoxical movement, no retractions. LUNGS: Clear, well-ventilated, symmetric, no rales, no wheezing, no rhonchi, no stridor, good breath sounds bilaterally. HEART: Regular rate, regular rhythm, no murmur, no gallops. VASCULAR: No peripheral edema. ABDOMEN: Peg intact, soft nontender abdomen RECTAL: Deferred. GENITAL: Deferred. NEUROLOGICAL: Normal speech, gross motor function intact, gross sensory function intact. MUSCULOSKELETAL: Neck nontender, full range of motion, back nontender, full range of motion. EXTREMITIES: Nontender, full range of motion. SKIN: Color pink, dry, no turgor, no rash, no lacerations, no abrasions, no contusions. LYMPHATICS: Deferred. MDM CC: PEG complication Historain: pateint VSS PEG replaced. XR per me shows tube in place. ED Course Orders Procedure Category Date Status Time Fentanyl Citrate Pf PHA 07/29/24 Complete 0.05 Mg/Ml (Fentanyl 13:00 Abd 1vw RAD 07/29/24 Resulted 13:37 Diatr PHA 07/29/24 Complete Meglu/Diatrizoate 14:32 Current Medications Medications (Trade) Dose Ordered Sig/[place] Route PRN Reason Start Time Stop Time Status Last Admin Dose Admin Diatrizoate Meglum/ Diatrizoate Sod (Gastrografin 66-10 Solution) 30 ml STK-MED ONCE .ROUTE 07/29/24 14:32 07/29/24 14:33 DC Fentanyl Citrate (FENTanyl CITRate PF 50 MCG/ 1 ML 2ML VIAL) 50 mcg ONCE ONCE IVP 07/29/24 13:00 07/29/24 13:01 DC 07/29/24 12:58 Vital Signs Date Time Temp Pulse Resp B/P (MAP) Pulse Ox O2 Delivery O2 Flow Rate FiO2 07/29/24 16:07 98.4 92 16 111/75 99 Room Air* 0 21 07/29/24 12:25 98.4 98 16 102/73 99 Room Air* 0 21 07/29/24 11:37 98.4 98 16 102/73 99 Room Air 0 DX & DISP Disposition: Discharge Departure Impression: Primary Impression: PEG tube malfunction Condition: Stable Additional Instructions: The PEG was replaced here in the ED. It is ok to use. Referrals: GERMAN GARCIA (PCP) SABRINA LOVE DO July 29, 2024 12:22
[2024-07-29] MEDS: FENTanyl CITRate PF 50 MCG/1 ML 2ML VIAL IVP ONE (12:58)
--- NOTE | 2024-07-29 13:44 | NUR ---
G TUBE REPLACED BY DR LOVE, PT TOLERATED WELL
--- NOTE | 2024-07-29 14:05 | NUR ---
[facility] REPORT CALLED TO [facility] WILL ARRANGE TRANSPORT
[2024-07-29] MEDS ORDERED: DIATR MEGLU/DIATRIZOATE SODIUM 30 ML BOTTLE ONE (14:32)
--- NOTE | 2024-07-29 15:27 | HMCIMG ---
ABD 1VW HISTORY: PEG tube replacement COMPARISON: None FINDINGS: A frontal projection of the abdomen was obtained. A nonspecific bowel gas pattern is seen. Fecal material is seen in the colon. Contrast was given through the G-tube with opacification of stomach. No extravasation of contrast is seen. Postcholecystectomy changes are seen. IMPRESSION: 1. Findings as described above.
--- NOTE | 2024-07-29 15:50 | NUR ---
PER DR LOVE D/Marlena PENDING XRAY RESULT
--- NOTE | 2024-07-29 16:06 | NUR ---
MYRANDA NOTIFIED ONCE AGAIN THAT PT IS READY FOR [employer] IN[employer]OR SPOKE TO [place]
[2024-07-29 16:07] VITALS: BP 111/75; PULSE 92; RESP 16; TEMP 98.4; O2SAT 99
== END 2024-07-29 16:08 | disposition short-term general hospital (02) ==
LOC: EDH 11:29
DX: K94.23 Gastrostomy malfunction (principal); E03.9 Hypothyroidism, unspecified; F32.A Depression, unspecified; I10 Essential (primary) hypertension; Z79.82 Long term (current) use of aspirin; Z79.890 Hormone replacement therapy
CPT/HCPCS: 99284; 43762; 96374; 74018; Q9963; J3010

== ENCOUNTER → 2025-01-08 | Outpatient (CLI) | payer OTHER ==
--- NOTE | 2025-01-08 11:31 | HMCIMG ---
DOUBLE CONTRAST UPPER GI SERIES: Finding: The study was performed using provocative maneuvers After swallowing effervescent crystal and thick barium, there is no definite intrinsic or extrinsic lesion seen in the esophagus. Esophagus is dilated. There is a small to moderate hiatal hernia. The stomach is normal in size, shape, and configuration.The rugal folds appear to be normal. The duodenal bulb, duodenal sweep, and upper jejunum appear to be normal. Fluoroscopy time: 0.7 minutes IMPRESSION: Esophagus is dilated air-filled Moderate size hiatal hernia Otherwise NORMAL DOUBLE CONTRAST UPPER GI SERIES.
== END | disposition home or self-care (01) ==
LOC: RAH 07:52
PROVIDERS: ATTEND Surgery
DX: K44.9 Diaphragmatic hernia without obstruction or gangrene (principal); K22.89 Other specified disease of esophagus; K91.1 Postgastric surgery syndromes; R10.10 Upper abdominal pain, unspecified; R11.2 Nausea with vomiting, unspecified
CPT/HCPCS: 74240

== ENCOUNTER → 2025-01-11 | Outpatient (CLI) | payer OTHER ==
[~2025-01-11] MED LIST changes: -NIAC500T24 PO; +[UNRECOGNIZED DRUG - CODE] PO
--- NOTE | 2025-01-13 06:13 | HMCIMG ---
EXAM: CT Cervical Spine Without IV Contrast CLINICAL HISTORY: Pain. TECHNIQUE: Thin collimated axial CT images of the cervical spine were obtained, with sagittal and coronal reformatted images also submitted. A CT scan is done according to ALARA (As Low As Reasonably Achievable). CONTRAST: None. COMPARISON: None provided. FINDINGS: No acute fracture. Normal lordotic curvature. Post-operative changes noted with the anterior fixative device and screws extending from C5 to C7 vertebral levels. Normal bone density. The surrounding soft tissues are unremarkable. Level by level, disease is present as follows: C1-C2: No osteoarthritis. C2-C3: No disc bulge or herniation. No neural foraminal, lateral recess, or spinal canal stenosis. C3-C4: No disc bulge or herniation. No neural foraminal, lateral recess, or spinal canal stenosis. C4-C5: There is a mild posterior disc bulge at C4-C5, with disc bulge measuring 3mm, with mild bilateral neuroforaminal narrowing and spinal canal stenosis. C5-C6: No disc bulge or herniation. No neural foraminal, lateral recess, or spinal canal stenosis. C6-C7: No disc bulge or herniation. No neural foraminal, lateral recess, or spinal canal stenosis. C7-T1: No disc bulge or herniation. No neural foraminal, lateral recess, or spinal canal stenosis. IMPRESSIONS: Mild posterior disc bulge at C4-C5 with disc bulge measuring 3mm with mild bilateral neuroforaminal narrowing and spinal canal stenosis. /[place]
--- NOTE | 2025-01-13 06:14 | HMCIMG ---
EXAM: MR Lumbar Spine Without Intravenous Contrast. CLINICAL HISTORY: Pain. TECHNIQUE: Magnetic resonance images of the lumbar spine in multiple planes. CONTRAST: None. COMPARISON: None. FINDINGS: For this examination, spinal levels were labeled assuming five [id number], lumbar-type vertebrae, with the inferior labeled L5. No acute fracture. Normal lordotic curvature. Normal vertebral body and disc heights. Normal marrow signal of the vertebrae. Conus medullaris terminates at the T12-L1 level. No abnormal epidural masses. The surrounding soft tissues are unremarkable. Individual spinal levels are described as follows: T12-L1: No disc bulge or herniation. No neural foraminal, lateral recess, or spinal canal stenosis. L1-L2: No disc bulge or herniation. No neural foraminal, lateral recess, or spinal canal stenosis. L2-L3: There is a diffuse posterior disc bulge measuring approximately 4 mm, causing mild thecal sac indentation and mild bilateral neuroforaminal lateral recess narrowing. No significant nerve compression. L3-L4: No disc bulge or herniation. No neural foraminal, lateral recess, or spinal canal stenosis. L4-L5: There is a diffuse posterior disc bulge measuring 3.5 mm, causing thecal sac indentation with mild bilateral neuroforaminal and lateral recess narrowing. L5-S1: No disc bulge or herniation. No neural foraminal, lateral recess, or spinal canal stenosis. IMPRESSION: Diffuse posterior disc bulge at L2-L3 measuring approximately 4 mm, causing mild thecal sac indentation and mild bilateral neuroforaminal lateral recess narrowing. No significant nerve compression. Diffuse posterior disc bulge at L4-L5 measuring 3.5 mm, causing thecal sac indentation with mild bilateral neuroforaminal and lateral recess narrowing. /[place]
== END | disposition home or self-care (01) ==
LOC: RAH 13:53
PROVIDERS: ATTEND Physician Assistant Medical
DX: M51.16 Intervertebral disc disorders with radiculopathy, lumbar region (principal); M48.061 Spinal stenosis, lumbar region without neurogenic claudication; M50.121 Cervical disc disorder at C4-C5 level with radiculopathy; M48.02 Spinal stenosis, cervical region
CPT/HCPCS: 72141; 72148